=== PATIENT | male | born 2000 | race Caucasian/White ===

== ENCOUNTER 2022-03-29 09:57 | Emergency (ER) | payer OTHER, SELFPAY ==
[2022-03-29 10:02] VITALS: BP 136/83; PULSE 71; RESP 18; TEMP 37.2; O2SAT 97; BMI 18.4
--- NOTE | 2022-03-29 10:30 | ED.GENADULT ---
HPI - General Adult General Chief complaint: Abdominal Pain Stated complaint: Stomach pain, fever Time Seen by Provider: 03/29/22 10:18 Source: patient Mode of arrival: ambulatory Limitations: no limitations History of Present Illness HPI narrative: 21-year-old male coming in today complaining of abdominal discomfort going on for about 2 weeks. He states that the pain is located in the center of the abdomen and does not radiate. Pain onset is usually right after eating and lasts a couple of hours. Makes it feel slightly nauseated and with decreased appetite. He states that yesterday he felt very bad after he ate and vomited a few times. He states that he had a fever of 100. Has not had a fever since or before that. He denies any weight loss over the last 2 weeks. He denies any recent traveling. He denies any drug use. He denies any diarrhea. He denies any chest pain or shortness of breath. Does state that he had a gastric ulcer all long time ago-was tested for H pylori and that was negative and his symptoms healed with treatment. Related Data Home Medications Medication Instructions Recorded Confirmed No Known Home Medications 03/29/22 03/29/22 Allergies Allergy/AdvReac Type Severity Reaction Status Date / Time No Known Drug Allergies Allergy Verified 03/29/22 10:07 Review of Systems Status of ROS: Reports: 10 or more systems reviewed and unremarkable except as noted in History and below [facility] Medical History No significant past medical history Surgical History No significant past surgical history Social History Smoking Status: Never smoker How often do you have a drink containing alcohol: never AUDIT-C Alcohol total score: 0 Non-prescribed substance use: denies use Exam Narrative: Exam Narrative: Well-nourished well-developed patient in no acute distress. He is 7 ft tall. Alert and oriented. Answers questions appropriately. Mood and affect are appropriate. Thoughts are goal oriented and rational. No tangential or magical thinking noted. Patient speaks in full sentences without needing to catch their breath. HEENT: Normocephalic atraumatic. While pupils are reactive to light, his right pupil is about 2 mm greater than his left. He states that he had an eye injury earlier this year and his pupils have been like that ever since. Extraocular muscles are intact. Conjunctivae are moist without any icterus noted. Moist mucous membranes. Posterior pharynx is normal. Neck is soft without any lymphadenopathy or thyromegaly. No masses are appreciated. Cardiovascular: Heart is regular rate and rhythm S1 and S2 are present without any murmurs. Lungs: Clear to auscultation bilaterally no wheezes rhonchi or rales are appreciated. Patient takes deep breaths without any discomfort. Abdomen: Soft and nontender nondistended with normal bowel sounds. No guarding or rebound. No masses or organomegaly appreciated. Extremities: Bilateral lower extremities are without edema. Normal DP and PT pulses. Skin: Well perfused without any obvious rashes. Const: Vital Signs, click to edit/add: Vital Signs - 24 hr 03/29/22 10:02 Temperature 98.9 F Pulse Rate [Pulse Oximeter] 71 Respiratory Rate 18 Blood Pressure [Ri t Upper Arm] 136/83 Pulse Oximetry 97 Course Vital Signs Vital signs: Initial Vital Signs Temperature 98.9 F 03/29/22 10:02 Temperature Source Temporal Artery Scan 03/29/22 10:02 Pulse Rate 71 03/29/22 10:02 Respiratory Rate 18 03/29/22 10:02 Blood Pressure 136/83 03/29/22 10:02 Blood Pressure Mean 100 03/29/22 10:02 Pulse Oximetry 97 03/29/22 10:02 Oxygen Delivery Method 03/29/22 10:02 Vital Signs Temperature 98.9 F 03/29/22 10:02 Pulse Rate 71 03/29/22 10:02 Respiratory Rate 18 03/29/22 10:02 Blood Pressure 136/83 03/29/22 10:02 Pulse Oximetry 97 03/29/22 10:02 Temperature 98.9 F 03/29/22 10:02 Pulse Rate 71 03/29/22 10:02 Respiratory Rate 18 03/29/22 10:02 Blood Pressure 136/83 03/29/22 10:02 Pulse Oximetry 97 03/29/22 10:02 Medical Decision Making MDM Narrative Medical decision making narrative: Labs were unremarkable. We discussed peptic ulcer disease gastric ulcers. At this time recommend daily omeprazole. Patient noticed a difference in the next 1-2 weeks. If things are not improving recommend he follow up with primary care provider and discuss endoscopy. Patient was agreeable had no other questions. Lab Data Lab results reviewed: Yes I reviewed the patient's lab results Labs: Lab Results 03/29/22 03/29/22 Range/Units 10:55 10:55 WBC 6.50 (4.50-11.00) K/uL RBC 4.99 (4.30-5.90) m/uL Hgb 15.6 (13.5-17.5) gm/dL Hct 44.9 (37.0-53.0) % MCV 90 (80-100) fL MCH 31 (26-34) pg MCHC 35 (32-36) gm/dL RDW Coeff of Deepa 11.6 (11.5-15.5) % Plt Count 186 (140-440) K/uL Neut % (Auto) 68.9 (42.0-72.0) % Lymph % (Auto) 14.2 L (20-44) % [place] % (Auto) 16.2 H (0.0-11.0) % Eos % (Auto) 0.0 (0.0-7.0) % Baso % (Auto) 0.5 (0.0-3.0) % Neut # (Auto) 4.49 (1.7-7.0) K/uL Lymph # (Auto) 0.90 (0.90-2.90) K/uL [place] # (Auto) 1.10 H (0.00-0.90) K/UL Eos # (Auto) 0.00 (0.00-0.50) K/uL Baso # (Auto) 0.03 (0.00-0.30) K/uL Abs Immat Gran (auto) 0.01 (0.00-0.30) K/uL Sodium 137 (135-149) mmol/L Potassium 4.3 (3.6-5.1) mmol/L Chloride 101 (96-114) mmol/L Carbon Dioxide 27 (20-32) mmol/L BUN 16 (5-24) mg/dL Creatinine 0.9 (0.5-1.5) mg/dL Estimated Creat Clear 152.81 Estimated GFR 124 ml/min Glucose 102 (60-115) mg/dL Calcium 9.5 (8.4-10.6) mg/dL Total Bilirubin 2.0 H (0.1-1.5) mg/dL Direct Bilirubin 0.2 (0.0-0.5) mg/dL AST 24 (12-35) U/L ALT 18 (4-50) U/L Alkaline Phosphatase 81 (40-150) U/L C-Reactive Protein 0.9 (0.5-1.0) mg/dL Total Protein 7.5 (6.0-8.3) g/dL Albumin 4.8 (3.3-5.0) g/dL Lipase 50 (23-300) U/L Discharge Plan Discharge Clinical Impression: Gastritis Patient Disposition: Home, Self-Care Condition: Stable Additional Instructions: Start omeprazole (Prilosec) 20 mg daily. This can be purchased [id number]. This will decrease the amount of acid in your stomach, allowing it to heal. You should continue this for 6-8 weeks. Follow-up with your primary care provider in 2 weeks if you are not seeing a difference in your symptoms. Prescriptions: No Action No Known Home Medications 0RF Follow Up/Referrals: Provider,Not a Local [Primary Care Provider] - Stand Alone Forms: [employer] Info Instructions
[2022-03-29 11:07] LABS: Basophils Absolute Auto 0.03 K/uL (0.00-0.30); Basophils Percent Auto 0.5 % (0.0-3.0); Hematocrit 44.9 % (37.0-53.0); Hemoglobin* 15.6 gm/dL (13.5-17.5); Immature Granulocytes Abs Auto 0.01 K/uL (0.00-0.30); Lymphocytes Percent Auto 14.2 % (20-44); Mean Corpuscular HGB Conc 35 gm/dL (32-36); Mean Corpuscular Hemoglobin 31 pg (26-34); Mean Corpuscular Volume 90 fL (80-100); Monocytes Percent Auto 16.2 % (0.0-11.0); Neutrophils Absolute Auto 4.49 K/uL (1.7-7.0); Neutrophils Percent Auto 68.9 % (42.0-72.0); Platelet Count* 186 K/uL (140-440); RDW Coefficient of Variation % 11.6 % (11.5-15.5); Red Blood Count 4.99 m/uL (4.30-5.90)
[2022-03-29 11:20] LABS: Chloride* 101 mmol/L (96-114)
[2022-03-29 11:21] LABS: Albumin* 4.8 g/dL (3.3-5.0); Potassium* 4.3 mmol/L (3.6-5.1); Sodium* 137 mmol/L (135-149)
[2022-03-29 11:23] LABS: Creatinine* 0.9 mg/dL (0.5-1.5); Est. Creatinine Clearance* 152.81; Estimated Glomerular Filt Rate 124 ml/min
[2022-03-29 11:24] LABS: Alanine Aminotransferase* 18 U/L (4-50); Alkaline Phosphatase* 81 U/L (40-150); Aspartate Amino Transferase* 24 U/L (12-35); Bilirubin Direct* 0.2 mg/dL (0.0-0.5); Blood Urea Nitrogen* 16 mg/dL (5-24); Calcium* 9.5 mg/dL (8.4-10.6); Carbon Dioxide* 27 mmol/L (20-32); Glucose* 102 mg/dL (60-115); Lipase* 50 U/L (23-300); Total Protein* 7.5 g/dL (6.0-8.3)
[2022-03-29 11:27] LABS: C Reactive Protein* 0.9 mg/dL (0.5-1.0)
[2022-03-29 11:44] LABS: Appearance Urine Clear (Clear); Bilirubin Urine Negative (Negative); Blood Urine Negative (Negative); Color Urine Brown (Yellow); Glucose Urine Negative (Negative); Ketones Urine 1+ (Negative); Leukocyte Esterase Urine Negative (Negative); Nitrite Urine Negative (Negative); Protein Urine Trace (Negative); pH Urine 6.5 (5.0-8.5)
[2022-03-29 12:05] LABS: RBC Urine 0-2 (0-2); WBC Urine 0-2 (0-5)
[2022-03-29 12:06] LABS: Mucus Urine Few
[2022-03-29 12:28] LABS: Slide Review Reflex No
== END 2022-03-29 11:55 | disposition home or self-care (01) ==
PROVIDERS: Emergency Provider Family Medicine
DX: K29.70 Gastritis, unspecified, without bleeding (principal)
CPT/HCPCS: 36415; 80048; 80076; 81001; 83690; 85025; 86140; 99282; 99284